=== PATIENT | female | born 1970 | race Caucasian/White ===

== ENCOUNTER 2018-10-03 19:39 | Emergency (ER) | payer OTHER ==
[~2018-10-03] VITALS: Ht 167.6 cm; Wt 60.3 kg
[2018-10-03 20:12] VITALS: Ht 167.6 cm; Wt 60.3 kg
[2018-10-03] MEDS ORDERED: morphine 4 MG/ML VIAL IV STA (20:28)
[2018-10-03] MEDS ORDERED: ONDANSETRON 4 MG INJ IV STA (20:28)
[2018-10-03] MEDS ORDERED: SOD CHLORIDE 0.9% 1,000 ML IV STA (20:28)
[2018-10-03] MEDS ORDERED: FAMOTIDINE 20 MG INJ IV STA (20:43)
[2018-10-03] MEDS ORDERED: LIDOCAINE/MYLANTA 40 ML BTL PO STA (20:43)
[2018-10-03] MEDS ORDERED: BELLADONNA/PHENOBARBITAL TAB PO STA (20:43)
--- NOTE | 2018-10-03 22:21 | ERD ---
ER Documentation Chief Complaint Chief Complaint Central AP, N/V X 12 hrs HPI This is a 40-year-old female with a past medical history of gastritis is presenting with epigastric burning radiating into her throat with a few episodes of nausea and nonbilious nonbloody vomiting. The patient reports that her symptoms have been getting worse over the last few days. The patient initially was vomiting food, but now reports that her vomiting has been yellow. The patient constantly eats spicy foods, which exacerbates her pain. The patient does not endorse any changes to bowel movements. She has not had any constipation or diarrhea. She has not had any black or bloody or tarry stools. She does not endorse any dysuria or hematuria or urgency or frequency. The patient denies feeling sick recently. The patient denies fever or chills. The patient has had no headache or vision changes. The patient does not endorse neck or back pain. The patient denies lightheadedness or dizziness. The patient has had no chest pain or trouble breathing. The patient has had no focal deficits. The patient has had no weakness or numbness or tingling to the face or extremities. ROS All systems reviewed and are negative except as per history of present illness. Allergies Allergies: Coded Allergies: No Known Allergy (Unverified , 07/27/14) PMhx/Soc Medical and Surgical Hx: pt denies Surgical Hx Hx Miscellaneous Medical Probl: Yes (Gastritis) Hx Alcohol Use: No Hx Substance Use: No Hx Tobacco Use: No Smoking Status: Never smoker Physical Exam Vitals Vital Signs Date Temp Pulse Resp B/P (MAP) Pulse Ox O2 O2 Flow FiO2 Time Delivery Rate 10/03/18 99.0 57 18 123/59 100 20:12 (80) Physical Exam Const: No apparent distress, well-developed, well-nourished Head: Normocephalic, Atraumatic Eyes: Normal Conjunctiva. Extraocular movements intact. Pupils equal, round and reactive to light ENT: Normal External Ears, Nose and Mouth. Neck: Full range of motion. No meningismus. Resp: Clear to auscultation bilaterally, No wheezes, rales or rhonchi Cardio: Regular rate and rhythm. No murmurs, rubs or gallops Abd: Soft, non distended. Mild epigastric tenderness. Normal bowel sounds Skin: No petechiae or rashes Back: No midline tenderness. No CVA tenderness Ext: No cyanosis, or edema Neur: Awake and alert, oriented 4. Cranial nerves intact. No facial droop. Normal strength, sensation and coordination. Psych: Normal Mood and Affect Result Diagram: 10/03/18203910/03/182039 Results 24 hrs Laboratory Tests Test 10/03/18 20:37 10/03/18 20:39 10/03/18 20:40 Urine Color YELLOW Urine Clarity SLIGHTLY CLOUDY Urine pH 6.0 Urine Specific [place] 1.020 Urine Ketones TRACE mg/dL Urine Nitrite NEGATIVE mg/dL Urine Bilirubin NEGATIVE mg/dL Urine Urobilinogen 1+ mg/dL Urine Leukocyte Esterase NEGATIVE Primitivo/ul Urine Microscopic RBC 11 /HPF Urine Microscopic WBC 2 /HPF Urine Squamous Epithelial Cells MODERATE /HPF Urine Mucus MANY /HPF Urine Hemoglobin 2+ mg/dL Urine Glucose NEGATIVE mg/dL Urine Total Protein NEGATIVE mg/dl POC Beta HCG, Qualitative NEGATIVE White Blood Count 7.8 10^3/ul Red Blood Count 3.84 10^6/ul Hemoglobin 10.7 g/dl Hematocrit 34.6 % Mean Corpuscular Volume 90.1 fl Mean Corpuscular Hemoglobin 27.9 pg Mean Corpuscular 30.9 g/dl Hemoglobin Concent Red Cell Distribution Width 12.9 % Platelet Count 266 10^3/UL Mean Platelet Volume 9.8 fl Immature Granulocytes % 0.400 % Neutrophils % 86.1 % Lymphocytes % 9.9 % Monocytes % 3.1 % Eosinophils % 0.1 % Basophils % 0.4 % Nucleated Red Blood Cells % 0.0 /100WBC Immature Granulocytes # 0.030 10^3/ul Neutrophils # 6.7 10^3/ul Lymphocytes # 0.8 10^3/ul Monocytes # 0.2 10^3/ul Eosinophils # 0.0 10^3/ul Basophils # 0.0 10^3/ul Nucleated Red Blood Cells # 0.0 10^3/ul Sodium Level 139 mmol/L Potassium Level 3.7 mmol/L Chloride Level 103 mmol/L Carbon Dioxide Level 24 mmol/L Anion Gap 12 Blood Urea Nitrogen 10 mg/dl Creatinine 0.72 mg/dl Est Glomerular Filtrat > 60 mL/min Rate mL/min Glucose Level 131 mg/dl Calcium Level 8.9 mg/dl Total Bilirubin 0.2 mg/dl Direct Bilirubin 0.00 mg/dl Indirect Bilirubin 0.2 mg/dl Aspartate Amino Transf (AST/SGOT) 21 IU/L Alanine 24 IU/L Aminotransferase (ALT/SGPT) Alkaline Phosphatase 58 IU/L Total Protein 7.6 g/dl Albumin 4.3 g/dl Globulin 3.30 g/dl Albumin/Globulin Ratio 1.30 Lipase 86 U/L Current Medications Medications Dose Sig/Piper Start Time Status Last (Trade) Ordered Route PRN Stop Time Admin Dose Reason Admin Sodium 1,000 ml @ Q1H STAT 10/03/18 DC 10/03/18 Chloride 1,000 mls/hr IV 20:28 10/03/18 20:39 21:27 Morphine 4 mg ONCE STAT 10/03/18 DC 10/03/18 Sulfate IV 20:28 10/03/18 20:40 (morphine) 20:31 Ondansetron 4 mg ONCE STAT 10/03/18 DC 10/03/18 HCl (Zofran IV 20:28 10/03/18 20:39 Inj) 20:31 Famotidine 20 mg ONCE STAT 10/03/18 DC 10/03/18 (Pepcid Iv) IV 20:43 10/03/18 21:09 20:44 40 ml ONCE STAT 10/03/18 DC 10/03/18 Miscellaneous PO 20:43 10/03/18 21:09 Medication 20:44 (Gi Cocktail (2)) Belladonna/ 2 tab ONCE STAT 10/03/18 DC 10/03/18 Phenobarbital PO 20:43 10/03/18 21:09 () 20:44 Procedures/MDM MDM The patient's presentation warrants further investigation. Previous medical records, if available, were reviewed. LABS The patient's laboratory testing was obtained and reviewed. No emergent treatment was required unless described below. CBC: No E/o systemic infection or severe anemia or thrombocytopenia. Mild normocytic anemia, nonemergent. Chemistry: No E/o severe acidosis or alkalosis or renal failure or liver disease or diabetic ketoacidosis Lipase: No E/o pancreatitis Urine: E/o acute infection. Hematuria is evident. TREATMENT/DISPOSITION The patient presents with epigastric burning, likely associated with her known history of gastritis. The patient was treated for this with significant improvement of her discomfort and nausea. The patient does not have any evidence of peritonitis. The patient does not have clinical symptoms concerning for mesenteric ischemia or ischemic colitis. The patient does not have right upper quadrant tenderness, and I have low suspicion for gallstones, cholecystitis or biliary colic. The patient does not have left upper quadrant tenderness. I have low suspicion for pancreatitis. The patient does not have any right lower quadrant tenderness, or periumbilical tenderness. I have low suspicion for appendicitis. The patient does not have suprapubic tenderness. I have decreased suspicion for cystitis. The patient does not have any left lower quadrant tenderness, and I have low suspicion for diverticulosis or diverticulitis. While the patient does have hematuria, she does not have any flank tenderness. I have decreased suspicion for nephrolithiasis or renal colic. The patient does not have any palpable pulsatile mass or severe abdominal pain radiating to the back. I have low suspicion for aortic aneurysm, dissection or rupture. Upon reevaluation of the patient, symptoms have improved. No emergent diagnoses were identified. At this time, I feel that the patient stable for discharge. The patient was instructed to follow-up with a primary care physician in 1-3 days. The patient will be given strict precautions with which to return to the emergency department. Prescriptions: Pepcid, Prilosec, Zofran Disclaimer: Inadvertent spelling and grammatical errors are likely due to EHR/dictation software use and do not reflect on the overall quality of patient care. Note that the electronic time recorded on this note does not necessarily reflect the actual time of the patient encounter. Departure Diagnosis: Primary Impression: Epigastric abdominal pain Additional Impressions: Gastritis Gastritis type: unspecified gastritis Chronicity: chronic Gastritis bleeding: without bleeding Qualified Codes: K29.50 - Unspecified chronic gastritis without bleeding Nausea and vomiting Vomiting type: unspecified Vomiting Intractability: non-intractable Qualified Codes: R11.2 - Nausea with vomiting, unspecified Normocytic anemia Condition: Stable DAXA ULLOA MD Oct 03, 2018 22:21
[2018-10-03] MEDS ORDERED: ONDA8TAB9 PO (22:23)
[2018-10-03] MEDS ORDERED: FAMO-96 PO (22:23)
[2018-10-03] MEDS ORDERED: OMEP20CA16 PO (22:23)
[2018-10-03 22:28] VITALS: BP 119/61; PULSE 67; RESP 16
== END 2018-10-03 22:48 | disposition home or self-care (01) ==
LOC: E/R 19:39
DX: K29.70 Gastritis, unspecified, without bleeding (principal); D64.9 Anemia, unspecified
CPT/HCPCS: 36415; 80053; 81001; 81025; 83690; 85025; 93005; 96374; 96375; 99284; J2270; J2405; J7030

== ENCOUNTER 2019-02-09 05:52 | Day surgery (SDC) | payer OTHER ==
[~2019-02-09] VITALS: Ht 167.6 cm; Wt 58.5 kg
[~2019-02-09 05:52] MED LIST: FAMO-96 PO; OMEP20CA16 PO; ONDA8TAB9 PO
[2019-02-09 06:55] VITALS: BP 133/64; PULSE 66; RESP 26
[2019-02-09 07:04] VITALS: Ht 167.6 cm; Wt 58.5 kg
[2019-02-09] MEDS ORDERED: OMEPRAZOLE (07:31)
[2019-02-09] MEDS ORDERED: MIDAZOLAM 1 MG/ML 2 ML INJ ONE ×2 (08:22)
[2019-02-09] MEDS ORDERED: FENTAnyl 50 MCG/ML VIAL ONE (08:22)
[2019-02-09 08:31] VITALS: BP 103/61; PULSE 80; RESP 18
--- NOTE | 2019-02-10 11:43 | CONS ---
DATE OF ADMISSION: 02/09/2019 DATE OF CONSULTATION: 01/19/2019 PATIENT NAME: NELLI EGAN TYPE OF CONSULTATION: Preoperative gastroenterology. Dear Dr. Mullins, I thank you very much for this kind referral. HISTORY OF PRESENT ILLNESS: Ms. Nelli Egan is a 48-year-old female patient who has been referred to me for further evaluation of upper abdominal pain, not completely responding to therapy with omepraz ole. The patient went to the Emergency Room and she had abdominal ultrasound and CT scan done and ac cording to her, they were negative. No past history of peptic ulcer disease. Not on nonsteroidal an ti-inflammatory agents. Appetite is good and no weight loss. No history of gallstones or liver dise ase. No change in the bowel habit or rectal bleeding. Not a hypertensive or diabetic. No heart dis ease, lung problem or kidney disease. SOCIAL HISTORY: Nonsmoker. No alcohol abuse. FAMILY HISTORY: No family history of gastrointestinal tract neoplasm. ALLERGIES: No drug allergies. MEDICATIONS: Omeprazole. PHYSICAL EXAMINATION: GENERAL: She is 5 feet 6 inches tall and weighs 128 pounds. HEART: Normal heart sounds. LUNGS: Clear. ABDOMEN: Soft, no masses. Normal bowel sounds. NEUROLOGIC: Normal neurological exam. IMPRESSION: 1. Upper abdominal pain, not completely responding to therapy with omeprazole. 2. The patient went to the Emergency Room and she had abdominal ultrasound and CT scan done and acco rding to her, they were normal. PLAN: Endoscopic examination for further evaluation. The procedure and possible complications are well explained to the patient. She understands and cons ents to the procedure. I thank you once again. With warmest personal regards, Dictated By: LY JOHNSON/JULIO Conf#: [id number] DID#: [id number]
== END 2019-02-09 10:05 | disposition home or self-care (01) ==
LOC: GIL 05:52
PROVIDERS: ATTEND Internal Medicine Gastroenterology
DX: K21.9 Gastro-esophageal reflux disease without esophagitis (principal)
CPT/HCPCS: 43239; 84703; 88305; 88312; J2250; J3010